=== PATIENT | male | born 1970 | race Hispanic/Latino ===

== ENCOUNTER 2020-03-02 09:52 | Day surgery (SDC) | payer BC ==
[2020-02-19 12:37] LABS: BASOPHILS % (AUTO) 1.1 % (0.0-5.0); EOSINOPHILS % (AUTO) 1.6 % (0.0-8.0); HEMATOCRIT 47.1 % (42-54); LYMPHOCYTES % (AUTO) 23.4 % (21.0-51.0); MEAN CORPUSCULAR HEMOGLOBIN 30.7 pg (27.0-33.0); MEAN CORPUSCULAR HGB CONC 32.9 g/dL (32.0-36.0); MEAN CORPUSCULAR VOLUME 93.3 fL (79-99); MONOCYTES % (AUTO) 7.6 % (3.0-13.0); PLATELET COUNT (AUTO) 262 K/uL (130-400); RED BLOOD CELL COUNT(AUTO) 5.05 MIL/uL (4.50-6.20); RED CELL DISTRIBUTION WIDTH 13.9 % (11.0-15.5); WHITE BLOOD COUNT (AUTO) 9.3 K/uL (4.8-10.8)
[2020-02-19 12:55] LABS: POTASSIUM 5.4 mmol/L (3.5-5.1)
[2020-02-25 09:06] VITALS: BP 129/73
--- NOTE | 2020-02-25 09:29 | NUR ---
Level of care Order received to change level of care from Ortho Unit to Day Patient for DOS 02/26/20
--- NOTE | 2020-02-28 15:05 | NUR ---
dr. babb notified of abnormal potasium level new orders to repeat DOS.
[~2020-03-02] VITALS: Ht 172.7 cm; Wt 88.5 kg
[2020-03-02] VITALS (26 sets, daily range): BP systolic 110–141; BP diastolic 68–85
[~2020-03-02 09:52] MED LIST: ATOR40TA69 PO; INSU100C14 SQ; LISI-617 PO; METF-446 PO; SULF1TAB41 PO; ozempic PO; steglatro PO
[2020-03-02] MEDS ORDERED: SODIUM CHLORIDE 0.9% 1000ML 1,000 ML IV ONE (10:43)
[2020-03-02] MEDS ORDERED: SUCCINYLCHOLINE CHLORIDE 20 MG/ML 10 ML VIAL ONE (11:26)
[2020-03-02] MEDS ORDERED: LIDOCAINE PF 2% 5ML ABBOJECT ONE (11:26)
[2020-03-02] MEDS ORDERED: PROPOFOL 10 MG/ML 20ML VIAL IV ONE (11:26)
[2020-03-02] MEDS ORDERED: ROCURONIUM 10MG/1ML SYR 10 MG/ML ML ONE (11:26)
[2020-03-02] MEDS ORDERED: FENTANYL CITRATE PF 50 MCG/1 ML 2ML VIAL ONE ×4 (11:27→18:36)
[2020-03-02 11:29] LABS: CREATININE 0.8 mg/dL (0.5-1.5); POTASSIUM 3.7 mmol/L (3.5-5.1)
[2020-03-02] MEDS ORDERED: ROPIVACAINE 0.5% 5MG/ML 30ML IJ ONE (11:30)
[2020-03-02] MEDS ORDERED: CEFAZOLIN SODIUM 1 GM VIAL ONE (11:40)
[2020-03-02] MEDS ORDERED: EPINEPHRINE 1 MG/ML 30ML VIAL IJ ONE (12:14)
[2020-03-02] MEDS ORDERED: GLYCOPYRROLATE 1 MG/5 ML SYRINGE ONE (14:34)
[2020-03-02] MEDS ORDERED: NEOSTIGMINE 5MG/5ML SYR IV ONE (14:34)
[2020-03-02] MEDS ORDERED: MIDAZOLAM HCL 1 MG/ML 2ML VIAL ONE ×2 (14:34→15:02)
[2020-03-02] MEDS ORDERED: ONDANSETRON HCL 4 MG/2 ML VIAL ONE (14:34)
[2020-03-02] MEDS ORDERED: DEXAMETHASONE SOD PHOSPHATE 10MG/ML 1ML VIAL ONE (14:34)
[2020-03-02] MEDS ORDERED: MEPERIDINE-PF 25 MG/ML SYG ONE ×2 (14:35→19:13)
--- NOTE | 2020-03-02 15:00 | NUR ---
New order Anesthesia here assessing pt; order received for Versed 2mg IV. Orders noted. Med administered as ordered. Monitor in place. (BP, HR, O2 sat)
--- NOTE | 2020-03-02 16:19 | NUR ---
To OR Pt taken to OR by ASHISH Laird. Pt awake, in no distress. VS wnl.
[2020-03-02] MEDS ORDERED: PHENYLEPHRINE HCL 10 MG/ML 1ML VIAL IV ONE (16:36)
[2020-03-02] MEDS ORDERED: EPHEDRINE SULFATE 50 MG/ML AMPULE ONE (17:04)
[2020-03-02] MEDS ORDERED: HETASTARCH IN 0.9 % NACL 500 ML IV ONE (17:10)
[2020-03-02] MEDS ORDERED: KETOROLAC TROMETHAMINE 30MG/ML ONE (19:00)
[2020-03-02] MEDS ORDERED: HYDR-4457 PO (19:40)
[2020-03-02] MEDS ORDERED: CEPH500B PO (19:40)
[2020-03-02] MEDS ORDERED: IBUP-2070 PO (19:40)
--- NOTE | 2020-03-02 20:30 | NUR ---
post op received pt and report from cristina rn from [facility]. pt in no distress with left shoulder on pillows and sling on. pt oriented to room and call light. will continue to monitor pt. spouse at bedside. pts fingers warm to touch and good radial pulse.
--- NOTE | 2020-03-02 21:00 | NUR ---
discharge pt and given d/c instructions. both voiced understanding. pt taken out via w/c by belem ignacio. no change to left shoulder dressing and arm. pt and spouse informed of scripts sent via e script. both voiced understanding.
== END 2020-03-02 21:00 | disposition home or self-care (01) ==
LOC: DAH 09:52
PROVIDERS: ATTEND Orthopaedic Surgery
DX: M75.02 Adhesive capsulitis of left shoulder (principal); Z20.828 Contact with and (suspected) exposure to other viral communicable diseases; M75.52 Bursitis of left shoulder; M24.112 Other articular cartilage disorders, left shoulder; I10 Essential (primary) hypertension; M25.512 Pain in left shoulder; E11.9 Type 2 diabetes mellitus without complications; E78.5 Hyperlipidemia, unspecified; E78.00 Pure hypercholesterolemia, unspecified; Z72.89 Other problems related to lifestyle; Z79.4 Long term (current) use of insulin; Z79.899 Other long term (current) drug therapy
CPT/HCPCS: 29823; 29825; 36415 ×2; 64415; 76942; 80048 ×2; 82948 ×2; 85025; A4215; A4221; A4222; A4223; A4565; A4649 ×3; A4663; A4930; A6204; C9803; J0171; J0330; J0690; J1100; J1885; J2001; J2175 ×2; J2250 ×2; J2370; J2405; J2704; J2710; J2795; J3010 ×3; J3490 ×3; J7030 ×2; U0003